=== PATIENT | female | born 1995 | race Caucasian/White ===

== ENCOUNTER 2021-07-01 13:37 | Emergency (ER) | payer BC ==
[~2021-07-01] VITALS: Ht 167.6 cm; Wt 75.7 kg
[2021-07-01 13:47] VITALS: BP_SYST 131
[2021-07-01] MEDS ORDERED: KETOROLAC TROMETHAMINE 30 MG VIAL IVP ONE (14:30)
[2021-07-01] MEDS ORDERED: NACL 0.9% 1,000 ML IV ONE (14:30)
[2021-07-01 15:12] LABS: CREATININE 0.52 mg/dL (0.55-1.30); POTASSIUM 3.5 mmol/L (3.5-5.1)
[2021-07-01 15:17] LABS: ALBUMIN 3.8 g/dL (3.4-4.8); TOTAL BILIRUBIN 0.4 mg/dL (0.0-1.0)
[2021-07-01 15:19] LABS: HEMOGLOBIN 9.1 g/dL (12.0-16.0); MEAN CORPUSCULAR HEMOGLOBIN 21 pg (27-31); MEAN CORPUSCULAR HGB CONC 31 % (32-36); MEAN CORPUSCULAR VOLUME 67 fL (79.0-98.0); PLATELET COUNT (AUTO) 366 K/uL (130-430); RED BLOOD CELL COUNT(AUTO) 4.34 MIL/uL (4.2-6.2); RED CELL DISTRIBUTION WIDTH 17.1 % (9.0-15.0); WHITE BLOOD COUNT (AUTO) 9.6 K/uL (4.8-10.8)
[2021-07-01 16:18] VITALS: BP_SYST 109
== END 2021-07-01 16:19 | disposition home or self-care (01) ==
LOC: SED 13:37
DX: S39.012A Strain of muscle, fascia and tendon of lower back, initial encounter (principal); D50.9 Iron deficiency anemia, unspecified; D50.0 Iron deficiency anemia secondary to blood loss (chronic); E28.2 Polycystic ovarian syndrome; X50.9XXA Other and unspecified overexertion or strenuous movements or postures, initial encounter; Y93.89 Activity, other specified; Y92.89 Other specified places as the place of occurrence of the external cause; Y99.8 Other external cause status
CPT/HCPCS: 36415; 71045; 72110; 80053; 81025; 83051; 85014; 85048; 85049; 86886; 86900; 86901; 93005; 96361; 96374; 99285; J1885; J7030

== ENCOUNTER 2022-12-17 18:07 | Emergency (ER) | payer BC ==
[~2022-12-17] VITALS: Ht 165.1 cm; Wt 87.5 kg
[2022-12-17 18:20] VITALS: BP_SYST 144; PULSE 108; RESP 20; TEMP 98; O2SAT 99
[2022-12-17] MEDS ORDERED: ONDANSETRON 4 MG ODT TAB PO ONE (20:15)
[2022-12-17] MEDS ORDERED: LORazepam 1 MG TABLET PO ONE (20:15)
[2022-12-17] MEDS ORDERED: ONDA-8 TL (20:52)
[2022-12-17 20:56] VITALS: BP_SYST 132; PULSE 81; RESP 18; TEMP 98; O2SAT 99
== END 2022-12-17 20:56 | disposition home or self-care (01) ==
LOC: SED 18:07
DX: F41.9 Anxiety disorder, unspecified (principal); T50.5X5A Adverse effect of appetite depressants, initial encounter; R11.2 Nausea with vomiting, unspecified; R42 Dizziness and giddiness; F15.129 Other stimulant abuse with intoxication, unspecified; Z79.899 Other long term (current) drug therapy; Y92.89 Other specified places as the place of occurrence of the external cause
CPT/HCPCS: 99283; Q0162